=== PATIENT | female | born 1945 | race Caucasian/White ===

== ENCOUNTER 2018-06-11 10:43 | Inpatient (IN) | payer MEDICARE ==
[~2018-06-11] VITALS: Ht 152.4 cm; Wt 64.0 kg
[2018-06-11] MEDS ORDERED: KETOROLAC TROMETHAMINE 30 MG/ML VIAL IV STA (11:18)
[2018-06-11] MEDS ORDERED: MORPHINE SULFATE 5 MG/ML VIAL IV ONE (11:30)
[2018-06-11] MEDS ORDERED: TRIFLURIDINE(OPTH) 1 % 7.5ML BOTTLE OP ONE (11:30)
[2018-06-11] MEDS ORDERED: MORPHINE SULFATE INJ 4 MG/ML INJ IV NR (11:45)
[2018-06-11 11:51] LABS: BASOPHILS % 0.7 % (0.0-1.0); EOSINOPHILS % 0.7 % (0.0-6.0); HEMOGLOBIN 15.9 g/dL (12.0-16.0); LYMPHOCYTES # (AUTO) 0.9 (1.0-3.2); LYMPHOCYTES % 19.2 % (18.0-39.1); MEAN CORPUSCULAR HGB CONC 35.3 g/dL (31-35); MEAN CORPUSCULAR VOLUME 90.5 fL (81-99); MONOCYTES # (AUTO) 0.5 (0.2-0.8); MONOCYTES % 11.6 % (4.4-11.3); NEUTROPHILS % 67.1 % (38.7-80.0); PLATELET COUNT 108 x10e3/uL (140-360); RED BLOOD COUNT 4.97 x10e6/uL (3.6-5.1)
[2018-06-11] MEDS ORDERED: ACYCLOVIR SODIUM INJ 1,000 MG in SODIUM CHLORIDE 0.9% 250ML 250 ML IV ONE (12:00)
[2018-06-11 12:11] LABS: ALANINE AMINOTRANSFERASE 26 IU/L (0-55); ALBUMIN 3.7 g/dL (3.5-5.0); ALBUMIN/GLOBULIN RATIO 1.2 (0.8-2.0); ALKALINE PHOSPHATASE 60 IU/L (40-150); ANION GAP 17.9 mmol/L (8-16); BLOOD UREA NITROGEN 15 mg/dL (7-26); BUN/CREATININE RATIO 18 (6-25); CALCIUM 9.3 mg/dL (8.4-10.2); CARBON DIOXIDE 20 mmol/L (22-29); CHLORIDE 96 mmol/L (98-107); CREATININE, SERUM 0.85 mg/dL (0.57-1.11); EST GLOMERULAR FILTRATION RATE > 60 ML/MIN (60-); GLUCOSE 113 mg/dL (74-118); POTASSIUM 3.9 mmol/L (3.5-5.1); SODIUM 130 mmol/L (136-145)
[2018-06-11] MEDS ORDERED: ONDANSETRON HCL INJ 2 MG/ML VIAL IV PRN (12:45)
[2018-06-11 13:50] VITALS: BP 132/60
[2018-06-11] MEDS ORDERED: VALACYCLOVIR HCL 500 MG TAB PO SCH (14:00)
[2018-06-11] MEDS: TRIFLURIDINE(OPTH) 1 % 7.5ML BOTTLE OP SCH ×5 (14:00→22:00)
[2018-06-11 15:45] VITALS: BP 132/60
[2018-06-11 16:00] VITALS: BP 115/62
[2018-06-11] MEDS: TRAMADOL HCL 50 MG TAB PO PRN (16:03)
[2018-06-11] MEDS: VALACYCLOVIR HCL 500 MG TAB PO SCH ×2 (18:04→22:22)
[2018-06-11] MEDS ORDERED: ACETAMINOPHEN 325 MG TAB PO PRN (19:30)
[2018-06-11 23:31] VITALS: BP 131/67
[2018-06-12] MEDS: TRIFLURIDINE(OPTH) 1 % 7.5ML BOTTLE OP SCH ×11 (02:00→23:21)
[2018-06-12 04:00] VITALS: BP 138/67
[2018-06-12] MEDS: VALACYCLOVIR HCL 500 MG TAB PO SCH ×3 (06:22→23:21)
[2018-06-12 08:59] VITALS: BP 141/69
[2018-06-12 11:57] VITALS: BP 122/65
[2018-06-12] MEDS: ACETAMIN/BUTALBITAL/CAFFEINE TAB PO PRN (14:05)
[2018-06-12 16:00] VITALS: BP 122/59
--- NOTE | 2018-06-12 17:05 | Consultation ---
DATE OF CONSULTATION: REASON FOR CONSULTATION: Left breast abscess. Thank you so much for asking me to see this patient. HISTORY OF PRESENT ILLNESS: This patient is a very pleasant, 73-year-old female who comes in with left breast infection, redness and swelling forming an abscess. The patient had previous infection in her breast before. The patient is being admitted and infectious disease was consulted. The patient is currently laying in bed comfortably. PAST MEDICAL HISTORY: Significant for obesity and previous infection before. PAST SURGICAL HISTORY: I and D before. ALLERGIES: NKA. SOCIAL HISTORY: There is no smoking, drug abuse or alcohol abuse. FAMILY HISTORY: INCOMPLETE DICTATION. Job#: [id number]
--- NOTE | 2018-06-12 17:06 | History and Physical ---
DATE OF SERVICE: June 12, 2018 CHIEF COMPLAINT: Worsening swelling on the left side of the face with history of herpes zoster. HPI: This is a 73-year-old female who has no past medical history who comes into the ED with complaints of worsening swelling in the left face for the last 1 week. Patient reports that she has shingles on the left side of the face that has been ongoing for the last 1 week with increasing worsening pain and erythema. Patient was then came into the ED for further evaluation. Currently, the patient's lesions are very dry and no evidence of any discharge. She has never experienced this in the past before. She denies any blurry vision or any difficulty seeing at all. She denies any chest pain or palpitations. She also denies any fever. Patent was seen and evaluated at bedside on the medical floor, currently doing well with no other complaints. REVIEW OF SYSTEMS PERTINENT POSITIVE: Left-sided facial swelling with underlying dryness of the herpes zoster. PERTINENT NEGATIVE: Denies any chest pain, palpitation, nausea, vomiting, diarrhea, dysuria, hematuria, frequency, urgency, lightheadedness, dizziness, abdominal pain, headache, shortness of breath, cough, congestion, fever, or any other complaints. The rest of 14-point review of systems have been reviewed with the patient and are negative. ALLERGIES: HORSE SERUM, PENICILLIN, AND BENADRYL. HOME MEDICATIONS: None. PAST MEDICAL HISTORY: None. SURGICAL HISTORY: Reports none. FAMILY HISTORY: Hypertension and diabetes. SOCIAL HISTORY: No drugs. No alcohol. Does not smoke. Good social support. VITAL SIGNS: Temperature is 99.9, pulse 79, respiratory rate is 18, blood pressure 122/65, and pulse ox 96% on room air. LAB FINDINGS: Show white count is 4.4, hemoglobin 15.9, hematocrit 45, and platelets of 108. Chemistry; sodium is 130, potassium 3.0, chloride 96, bicarb 28, anion gap is 17, BUN is 15, creatinine is 0.85, glucose is 113, calcium 9.3. Total bilirubin is 0.6, AST 17, ALT 26, alk phos 60, total protein 6.8, albumin 3.7. MICROBIOLOGY: None. IMAGING STUDIES: None. PHYSICAL EXAM GENERAL: Not in acute distress, alert and oriented x3, cooperative on examination. HEENT: Head normocephalic, atraumatic. Eyes; Pupils are equal, round, and reactive to light bilaterally. Extraocular movements are intact bilaterally. No evidence of any erythema or exudates in the posterior pharynx, has poor dentition. Left-sided facial swelling with erythema, tender to palpation. Has dried vesicles from herpes. NECK: Supple. Good range of motion throughout. PULMONARY: Clear to auscultation bilaterally. No wheezing. No rales. No rhonchi. No crackles appreciated. CARDIOVASCULAR: Positive S1, S2. No murmurs, rubs, or gallops appreciated. ABDOMEN: Soft, nondistended, and nontender to palpation. Bowel sounds present. MUSCULOSKELETAL: Strength is 5/5 throughout. No evidence of any musculoskeletal deficit on examination. No weakness appreciated. NEUROLOGIC: Cranial nerves II through XII are grossly intact. No evidence of any neurological deficit on exam. SKIN: Intact. Warm to touch. Good cap refill. PSYCHIATRIC: Normal affect and mood. EXTREMITIES: No edema. Good range of motion throughout. IMPRESSION 1. Herpes zoster involving the left face dermatome distribution. 2. Severe left-sided facial pain. 3. Concerns for underlying facial cellulitis. 4. Medically debilitated. PLAN: At this time, patient will continue with oral Valtrex. I will consult with ID to manage and evaluate. We will also consult with bow maker custom to monitor for any of the left eye. She is currently doing well. Denies any blurred vision or any kind of vision issues at all. We will likely need to begin IV acyclovir versus oral Valtrex, but will defer it to ID. Resume home medications. Vital signs are stable. We will also encourage ambulation as well. Otherwise, she will also be on Lovenox for DVT prophylaxis. Job#: [id number] RIAZ
--- NOTE | 2018-06-12 17:12 | Consultation ---
DATE OF CONSULTATION: June 12, 2018 REASON FOR CONSULTATION: Facial herpes zoster. HISTORY OF PRESENT ILLNESS: Ms. Nino is a 73-year-old white female who comes into the hospital because of redness and swelling and rash noted on the left side of the face. The patient had pain with that. It started with several lesions. The patient comes into the hospital. Infectious disease was consulted. PAST MEDICAL HISTORY: She denies. PAST SURGICAL HISTORY: She denies. ALLERGIES: NKA. SOCIAL HISTORY: There is no smoking, drug abuse or alcohol use. PHYSICAL EXAMINATION: GENERAL: She is currently alert, oriented and does not seem to be in acute distress. VITALS: Stable. Currently afebrile. HEENT: She is not icteric. NECK: Supple. CHEST: Clear bilaterally. COR: S1 and S2. No murmur. ABDOMEN: Soft. Bowel sounds present. No tenderness. No hepatosplenomegaly. EXTREMITIES: No edema. SKIN: She did have a vesicular rash noted effecting the left side of her face which does involve the forehead. IMPRESSION: Herpes zoster, concerned about involvement of the eye. RECOMMENDATIONS: Will put her on Acyclovir IV. Will give Decadron. Ophthalmology has been consulted. Acyclovir should be 10 mg/kg IV piggyback q.8 h. Can discontinue Acyclovir until we get confirmation that the eye is not involved. Place her on Decadron in the meantime. Ophthalmology is supposed to see the patient today. Will follow. Job#: [id number]
[2018-06-12] MEDS: DEXAMETHASONE SOD PHOS INJ 4 MG/ML VIAL IV SCH (18:33)
[2018-06-12] MEDS: ENOXAPARIN SOD INJ 40 MG/0.4 ML SYR SC SCH (18:33)
[2018-06-12 20:00] VITALS: BP 135/78
[2018-06-12] MEDS ORDERED: ACYCLOVIR SODIUM INJ 500 MG in SODIUM CHLORIDE 0.9% 100 ML 100 ML IV SCH (22:00)
[2018-06-12] MEDS ORDERED: SODIUM CHLORIDE 0.9% 250ML 250 ML ONE (22:59)
[2018-06-12] MEDS: SODIUM CHLORIDE 0.9% IV SCH (23:21)
[2018-06-12] MEDS: ACYCLOVIR SODIUM IV SCH (23:21)
--- NOTE | 2018-06-12 23:54 | Consultation ---
DATE OF CONSULTATION: June 12, 2018 CHIEF COMPLAINT: Left facial swelling. HISTORY OF PRESENT ILLNESS: The patient is a 73-year-old female, 1-week history of swelling on the left side of her face with redness and pain with low-grade temperature. Patient states she had a little scratch in the area just below her nose in the upper lip, which seemed to be progressing up the left side of her face with edema of her eyelid, swollen and blister formation inside her mouth. Patient states her grandson also suffers from the same problem and currently, at [facility]. PAST MEDICAL HISTORY: Essentially unremarkable for any chronic medical illness. SURGICAL HISTORY: Negative. ALLERGIES: SHE IS ALLERGIC TO PENICILLIN. SOCIAL HABITS: She does not smoke or drink alcohol. REVIEW OF SYSTEMS: No chest pain or shortness of breath. EXAM VITAL SIGNS: Stable. Temperature 100. GENERAL: The patient awake, alert, in mild discomfort. HEENT: Sclerae anicteric. Left orbit is edematous with some conjunctival injection. Cheek and buccal area are edematous with erythema and some mild tenderness. There is some small blister inside the buccal mucosa. Besides the edema, there is no fluctuance. NECK: Supple. LUNGS: Clear. HEART: Regular rate, rhythm. ABDOMEN: Soft. EXTREMITIES: Without cyanosis, edema. LABS: White cell count is 4.4, hemoglobin of 16. Creatinine is 0.8. Liver function tests unremarkable. ASSESSMENT: Left facial swelling and redness being treated for shingles. If there is no progress or there is worsening conditions, consider antibiotics to prevent secondary bacterial infection. PLAN: Will continue monitoring. CT of face if condition worsens. Job#: [id number]
[2018-06-13] VITALS: BP 110/60
[2018-06-13] MEDS: TRIFLURIDINE(OPTH) 1 % 7.5ML BOTTLE OP SCH ×10 (01:19→20:32)
[2018-06-13] MEDS: TRAMADOL HCL 50 MG TAB PO PRN (01:24)
[2018-06-13 04:00] VITALS: BP 129/78
[2018-06-13] MEDS: ACYCLOVIR SODIUM IV SCH ×3 (05:46→22:37)
[2018-06-13] MEDS: SODIUM CHLORIDE 0.9% IV SCH ×3 (05:46→22:37)
[2018-06-13] MEDS: VALACYCLOVIR HCL 500 MG TAB PO SCH (05:46)
[2018-06-13 06:30] LABS: BLOOD UREA NITROGEN 11 mg/dL (7-26); BUN/CREATININE RATIO 16 (6-25); CARBON DIOXIDE 19 mmol/L (22-29); CHLORIDE 99 mmol/L (98-107); CREATININE, SERUM 0.69 mg/dL (0.57-1.11); EST GLOMERULAR FILTRATION RATE > 60 ML/MIN (60-); GLUCOSE 94 mg/dL (74-118); SODIUM 133 mmol/L (136-145)
[2018-06-13 07:10] LABS: BASOPHILS % 0.7 % (0.0-1.0); EOSINOPHILS % 0.5 % (0.0-6.0); HEMOGLOBIN 15.3 g/dL (12.0-16.0); LYMPHOCYTES # (AUTO) 1.8 (1.0-3.2); LYMPHOCYTES % 41.6 % (18.0-39.1); MEAN CORPUSCULAR HEMOGLOBIN 31.7 pg (28-32); MEAN CORPUSCULAR HGB CONC 35.6 g/dL (31-35); MONOCYTES # (AUTO) 0.6 (0.2-0.8); MONOCYTES % 13.1 % (4.4-11.3); NEUTROPHILS # (AUTO) 1.9 (2.1-6.9); NEUTROPHILS % 43.4 % (38.7-80.0); PLATELET COUNT 127 x10e3/uL (140-360); RED BLOOD COUNT 4.83 x10e6/uL (3.6-5.1); RED CELL DISTRIBUTION WIDTH 11.8 % (11.7-14.4)
[2018-06-13 07:40] VITALS: BP 108/70
[2018-06-13 08:16] VITALS: BP 108/70
[2018-06-13 08:56] LABS: EOSINOPHILS % (MANUAL) 1 % (0-7); LYMPHOCYTES % (MANUAL) 47 % (19-48); MONOCYTES % (MANUAL) 9 % (3.4-9.0); NEUTROPHILS % (MANUAL) 40 % (40-74)
[2018-06-13 08:57] LABS: PLATELET ESTIMATE SLIGHTLY DECREASED; PLATELET MORPHOLOGY COMMENT NORMAL; RBC MORPHOLOGY COMMENT NORMAL
[2018-06-13] MEDS: DEXAMETHASONE SOD PHOS INJ 4 MG/ML VIAL IV SCH ×2 (09:13→17:49)
[2018-06-13 12:32] VITALS: BP 133/64
--- NOTE | 2018-06-13 14:24 | Progress Note ---
DATE: June 13, 2018 MEDICINE PROGRESS NOTE SUBJECTIVE: The patient is currently doing well with no other issues. I discussed with the bath steward, and he recommends continuing with IV acyclovir for now and discharge on oral antiviral medications as well as eyedrops. She will need to follow up in 2 days in his office after being discharged. Currently she is doing well with no other complaints. OBJECTIVE VITAL SIGNS: Temperature is 97.6, pulse 53, respiratory rate is 20, blood pressure is 116/72, pulse ox 98% on room air. LAB FINDINGS: Show white count 4.8, hemoglobin is 12.6, hematocrit is 39.6, platelets of 251. COAGULATION: PT 14, INR 1.2, PTT 36. CHEMISTRY: Sodium 146, potassium 3.5, chloride is 110, bicarb 24, anion gap of 15, BUN 17, creatinine is 0.77, magnesium is 1.5. INCOMPLETE REPORT Job#: [id number] EV
--- NOTE | 2018-06-13 14:26 | Progress Note ---
DATE: June 13, 2018 MEDICINE PROGRESS NOTE SUBJECTIVE: The patient is currently doing well with no other issues. I discussed with the coil assembler, and he recommends continuing with IV acyclovir for now and discharge on oral antiviral medications as well as eyedrops. She will need to follow up in 2 days in his office after being discharged. Currently she is doing well with no other complaints. OBJECTIVE VITAL SIGNS: Temperature is 98.1, pulse 85, respiratory rate is 18, blood pressure 132/64, pulse ox 95% on room air. LAB FINDINGS: White count is 4.3, hemoglobin 15.3, hematocrit is 43, platelets are 127. CHEMISTRY: Sodium is 133, potassium 4, chloride 99, bicarb 19, anion gap of 19, BUN is 11, creatinine is 0.69, glucose is 94, calcium is 9. LFTs were normal. MICROBIOLOGY: None. IMAGING STUDIES: None. PHYSICAL EXAMINATION GENERAL: Not in acute distress. Alert, oriented x3, cooperative on examination. HEENT: Head: Normocephalic, atraumatic. Eyes: Pupils equally round and reactive to light bilaterally. Extraocular movements intact bilaterally. Neck was supple with good range of motion. Throat: No evidence of any erythema or exudates in the posterior pharynx. Has poor dentition. PULMONARY: Clear to auscultation bilaterally. No wheezing, no rales, no rhonchi, no crackles appreciated. CARDIOVASCULAR: Positive S1/S2. No murmurs, rubs or gallops appreciated. ABDOMEN: Soft, nondistended, nontender to palpation. Bowel sounds present. MUSCULOSKELETAL: Strength is 5/5 throughout. No evidence of any musculoskeletal deficit on examination. No weakness appreciated. NEUROLOGICAL: Cranial nerves 2-12 grossly intact. No evidence of any neurological deficit on exam. SKIN: Intact. Warm to touch. Good capillary refill. PSYCHIATRIC: Normal affect and mood. EXTREMITIES: No edema. Good range of motion throughout. IMPRESSION 1. Herpes zoster involving the left side of the face dermatomal distribution. 2. Severe left-sided facial pain. 3. Concern for underlying facial cellulitis. 4. Medically debilitated. PLAN: At this time I already discussed the case with Ophthalmology, and Dr. Love has already started on some antiviral eyedrops as well and is to continue with IV acyclovir. The patient will be transitioned to oral antiviral medications on discharge. He also recommends following up in 2 days after discharge from the hospital for close followup. There is no involvement in the cornea according to the coil assembler. At this time continue with IV acyclovir as well as eyedrops. Continue with same plan of care. I am also following with ID's recommendations as well. Otherwise, patient will likely be here through the weekend and be discharged possibly on Saturday or Saturday. Job#: [id number] EV
[2018-06-13] MEDS: ENOXAPARIN SOD INJ 40 MG/0.4 ML SYR SC SCH (17:49)
[2018-06-13 20:00] VITALS: BP 127/84
[2018-06-13] MEDS: ACETAMIN/BUTALBITAL/CAFFEINE TAB PO PRN (20:32)
[2018-06-14] VITALS (8 sets, daily range): BP systolic 117–137; BP diastolic 62–84
[2018-06-14] MEDS: ACYCLOVIR SODIUM IV SCH ×3 (05:32→21:53)
[2018-06-14] MEDS: SODIUM CHLORIDE 0.9% IV SCH ×3 (05:32→21:53)
[2018-06-14] MEDS: TRIFLURIDINE(OPTH) 1 % 7.5ML BOTTLE OP SCH ×4 (07:30→21:36)
[2018-06-14] MEDS: DEXAMETHASONE SOD PHOS INJ 4 MG/ML VIAL IV SCH ×2 (09:26→17:34)
--- NOTE | 2018-06-14 16:11 | Progress Note ---
DATE: June 14, 2018 SUBJECTIVE: Patient is doing much better today with no other issues. Her left face with herpes zoster has improved tremendously, which she will need to continue with IV antibiotics. OBJECTIVE VITAL SIGNS: Temperature is 98, pulse 77, respiratory rate is 18, blood pressure 125/64, and pulse ox 96% on room air. LAB FINDINGS: None. PHYSICAL EXAMINATION GENERAL: Not in acute distress, alert and oriented x3, cooperative on examination. HEENT: Head normocephalic, atraumatic. Eyes; pupils are equal, round and reactive to light bilaterally. Extraocular movements are intact bilaterally. ABDOMEN: Soft, nondistended, nontender to palpation. Bowel sounds present. MUSCULOSKELETAL: Strength is 5/5 throughout. No evidence of any musculoskeletal deficit on examination. No weakness appreciated. NEUROLOGICAL: Cranial nerves II through XII are grossly intact. No evidence of any neurological deficit on exam. SKIN: Intact. Warm to touch. Good capillary refill. PSYCHIATRIC: Normal affect and mood. EXTREMITIES: No edema. Good range of motion throughout. IMPRESSION 1. Herpes zoster involving the left side of the face with dermatomal distribution. 2. Severe left-sided facial pain. 3. Concerns for underlying facial cellulitis. 4. Medically debilitated. PLAN: At this time, opthalmology and ID are following in the clinic. She is on IV acyclovir as well as antiviral eye drops. She is improving daily. Her face is improving. She needs to followup 2 days after discharge with the senior clinician. We will continue with more IV acyclovir for now since it is improved tremendously. I plan to discharge her either tomorrow or either Saturday. Otherwise, she needs to go home also on antiviral eye drops upon discharge. Job#: [id number] ED
[2018-06-14] MEDS: ENOXAPARIN SOD INJ 40 MG/0.4 ML SYR SC SCH (17:34)
[2018-06-14] MEDS: ACETAMIN/BUTALBITAL/CAFFEINE TAB PO PRN (21:53)
[2018-06-15] VITALS: BP 108/55
[2018-06-15 04:00] VITALS: BP 123/68
[2018-06-15] MEDS: ACYCLOVIR SODIUM IV SCH ×2 (06:00→14:00)
[2018-06-15] MEDS: SODIUM CHLORIDE 0.9% IV SCH ×2 (06:00→14:00)
[2018-06-15 07:25] VITALS: BP 134/65
[2018-06-15] MEDS: TRIFLURIDINE(OPTH) 1 % 7.5ML BOTTLE OP SCH ×2 (07:30→11:30)
[2018-06-15 07:50] VITALS: BP 134/65
[2018-06-15] MEDS: DEXAMETHASONE SOD PHOS INJ 4 MG/ML VIAL IV SCH (09:00)
[2018-06-15 11:54] VITALS: BP 136/60
[2018-06-15] MEDS ORDERED: ACYCLOVIR800 MG PO (15:37)
[2018-06-15 15:53] VITALS: BP 131/62
--- NOTE | 2018-06-16 02:30 | Discharge Summary ---
FINAL DISCHARGE DIAGNOSES 1. Herpes zoster involving the left side of the face with dermatomal distribution. 2. Severe left-sided facial pain. 3. Medically debilitated. CONSULTANTS: ID and Ophthalmology. VITAL SIGNS: Temperature is 96.8, pulse 80, respiratory rate is 18, blood pressure is 136/84, and pulse ox 97% on room air. LAB FINDINGS: White count is 4.3, hemoglobin is 15.3, hematocrit is 43, and platelets of 127,000. Chemistry, sodium 133, potassium 4, chloride 99, bicarb 19, anion gap of 19, BUN is 11, and creatinine is 0.69. LFTs were normal. Albumin is 3.7. MICROBIOLOGY: None. IMAGING STUDIES: None. HOSPITAL COURSE: This is a 73-year-old female who came into the ED with complaints of left-sided facial pain and underlying worsening erythema and swelling. The patient was admitted and felt like the patient has likely Herpes zoster on the left side of the face with dermatomal distribution. ID and Ophthalmology was consulted. It was confirmed by both specialists that the patient has Herpes zoster on the left side of the face. Ophthalmology evaluated the patient. There was no involvement in the eye, recommended eyedrops, which the patient will be discharged home with. Per ID, the patient will need to be on IV acyclovir while here in the hospital and was discharged with acyclovir 800 mg p.o. 5 times a day for 5 additional more days. The patient was advised to follow up with ID and Ophthalmology in the next 2 to 3 days upon discharge. On discharge, the patient was doing well and her face improved tremendously while here in the hospital. On the day of discharge, vital signs were stable, laboratories were stable. The patient was seen, evaluated, and examined thoroughly on the day of discharge with no other complaints. The patient verbalized understanding and agreed to plan of care, to follow up accordingly as an outpatient with primary care physician in 1 week and ophthalmology and ID in the next 2 to 3 days. MEDICATIONS: See medicine reconciliation form including acyclovir 800 mg 1 tablet 5 times a day for 5 additional days and also eyedrops that she will take home with. DISPOSITION: Home. DISCHARGE CONDITION: Stable. DIET: Heart healthy. In the event of any worsening symptoms, the patient was advised to come back to ED for further evaluation. This discharge summary took greater than 35 minutes. NAYANA LUGO MD Job#: [id number] ELAYNE
== END 2018-06-15 15:57 | disposition home or self-care (01) | DRG 603 ==
LOC: ER 10:43 → ERHOLD 12:40 → MED/SURG3 14:16
PROVIDERS: ADMIT Internal Medicine; ATTEND Internal Medicine
DX: L03.211 Cellulitis of face (principal); B02.33 Zoster keratitis; B02.30 Zoster ocular disease, unspecified; B97.89 Other viral agents as the cause of diseases classified elsewhere; R53.81 Other malaise; Z88.0 Allergy status to penicillin; N61.1 Abscess of the breast and nipple; E66.9 Obesity, unspecified; Z68.27 Body mass index [BMI] 27.0-27.9, adult; B00.9 Herpesviral infection, unspecified
CPT/HCPCS: 36415; 80048; 80053; 85025; 99284; J1100; J1650; J1885; J2405; J7050